=== PATIENT | male | born 1985 | race American Indian/Alaskan Native ===

== ENCOUNTER 2017-08-30 08:48 | Emergency (ER) | payer MEDICARE, MEDICAID ==
[2017-08-30 08:49] VITALS: BMI 28.5
[2017-08-30] MEDS ORDERED: HYDROmorphone 1 mg/ml ISec IVP STA (08:52)
[2017-08-30] MEDS ORDERED: HYDROmorphone 2 mg/ml ISec IVP STA (08:52)
--- NOTE | 2017-08-30 08:58 | ED PDOC ---
Arrival/HPI - General Chief Complaint: Male Genitourinary Time Seen by Provider: 08/30/17 08:49 Historian: Patient - History of Present Illness Narrative History of Present Illness (Text): 08/30/17 08:55 A 31 year old male, whose past medical history includes sickle cell anemia, presents to the emergency department with sudden onset left testicular pain. The patient states that the pain began just a few hours ago. The patient denies fevers, chills, headache, dizziness, chest pain, shortness of breath, dyspnea on exertion, cough, abdominal pain, nausea, vomiting, diarrhea, back pain, neck pain, urinary/bowel changes, or any other complaint. Time/Duration: Other (Few Hours Ago) Symptom Onset: Sudden Symptom Course: Unchanged Activities at Onset: Rest Context: Home Past Medical History - Provider Review Nursing Documentation Reviewed: Yes - Tetanus Immunization Tetanus Immunization: Unknown - Psychiatric Hx Depression: No Hx Emotional Abuse: No Hx Physical Abuse: No Hx Substance Use: Yes (CANNABIS) - Past Surgical History Past Surgical History: No Previous - Suicidal Assessment Feels Threatened In Home Enviroment: No Family/Social History - Physician Review Nursing Documentation Reviewed: Yes Family/Social History: No Known Family HX Smoking Status: Never Smoked Hx Alcohol Use: Yes Frequency of alcohol use: Socially Hx Substance Use: Yes (CANNABIS) Allergies/Home Meds Allergies/Adverse Reactions: Allergies shellfish derived Allergy (Verified 08/30/17 08:52) ANAPHYLAXIS Review of Systems - Physician Review All systems were reviewed & negative as marked: Yes - Review of Systems Constitutional: absent: Fevers, Night Sweats Respiratory: absent: SOB Cardiovascular: absent: Chest Pain, FOWLER Gastrointestinal: absent: Abdominal Pain, Stool Changes, Diarrhea, Nausea, Vomiting Genitourinary Male: Other (Left Testicular Pain.). absent: Urinary Output Changes Musculoskeletal: absent: Back Pain, Neck Pain Neurological: absent: Headache, Dizziness Physical Exam Vital Signs Reviewed: Yes Vital Signs Temp Pulse Resp BP Pulse Ox 08/30/17 11:00 84 18 142/78 98 08/30/17 09:15 98.7 F 87 18 158/111 H 100 Temperature: Afebrile Blood Pressure: Hypertensive Pulse: Regular Respiratory Rate: Normal Appearance: Positive for: Well-Appearing, Non-Toxic Pain Distress: Mild Mental Status: Positive for: Alert and Oriented X 3 - Systems Exam Head: Present: Atraumatic, Normocephalic Pupils: Present: PERRL Extroacular Muscles: Present: EOMI Conjunctiva: Present: Normal Mouth: Present: Moist Mucous Membranes Neck: Present: Normal Range of Motion Respiratory/Chest: Present: Clear to Auscultation, Good Air Exchange. No: Respiratory Distress, Accessory Muscle Use Cardiovascular: Present: Regular Rate and Rhythm, Normal S1, S2. No: Murmurs Abdomen: Present: Normal Bowel Sounds. No: Tenderness, Distention, Peritoneal Signs Genitourinary Male: Present: Testicle Tenderness (Left testicular tenderness. ) Back: Present: Normal Inspection Upper Extremity: Present: Normal Inspection. No: Cyanosis, Edema Lower Extremity: Present: Normal Inspection. No: Edema Neurological: Present: GCS=15, CN II-XII Intact, Speech Normal Skin: Present: Warm, Dry, Normal Color. No: Rashes Psychiatric: Present: Alert, Oriented x 3, Normal Insight, Normal Concentration Medical Decision Making ED Course and Treatment: 08/30/17 08:58 Impression: A 31 year old male presents to the emergency department with a few hour duration left testicular pain. Plan: -- Testes Ultrasound -- Labs -- Dilaudid -- Reassess and disposition Prior Visits: Notes and results from previous visits were reviewed. Patient was last seen in the emergency department on 02/24/2013. The patient was seen in the emergency department with right lateral hand laceration. The patient was discharged home. Progress Notes: TESTES US Dictator : Gracy Wang MD Report Date : 08/30/2017 10:46:27 IMPRESSION: Small left hydrocele. Please note, color flow demonstrated within bilateral testes. Doppler images were suboptimal, likely due to technical difficulties. 08/30/17 11:44: Dr. Sarmiento at bedside. States torsion less likey Recommends Motrin and antibiotics. pt offered addidionatl observation and cT scan of abdomena s no reports abdominal pain- pt refuses, wishes to leave immediately. 08/30/17 12:00: Leaving Against Medical Advice (AMA): The patient is choosing to leave against medical advice. I have personally explained to the patient that choosing to do so may result in permanent bodily harm or . I have discussed at great length that without further evaluation and monitoring there may be unforeseen circumstances and/or deterioration causing permanent bodily harm or as a result of their choice. The patient is alert, oriented, and shows the mental capacity to make clear decisions regarding the patients health care at this time. The patient continues to wish to leave against medical advice. In light of the patients decision to leave against medical advice, follow-up has been arranged and the patient is aware of the importance to following up as instructed. The patient has been advised that they should return to the emergency room immediately if they change their mind at any time, or if their condition begins to change or worsen in any way. - Lab Interpretations Lab Results: 08/30/17 09:00 08/30/17 09:00 Lab Results 08/30/17 10:20: Urine Color Yellow, Urine Appearance Sl cloudy, Urine pH 6.0, Ur Specific [place] 1.025, Urine Protein 100 H, Urine Glucose (UA) Negative, Urine Ketones Negative, Urine Blood Small H, Urine Nitrate Negative, Urine Bilirubin Negative, Urine Urobilinogen 0.2, Ur Leukocyte Esterase Negative, Urine RBC 0 - 2, Urine WBC 0 - 2, Ur Epithelial Cells None, Urine Bacteria Mod, Hyaline Casts 0 - 2 08/30/17 09:00: Sodium 143, Potassium 4.1, Chloride 108 H, Carbon Dioxide 24, Anion Gap 14, BUN 12, Creatinine 1.0, Est GFR ( Amer) > 60, Est GFR (Non- Af Amer) > 60, Random Glucose 115 H, Calcium 10.0, Total Bilirubin 0.8, AST 30, ALT 47, Alkaline Phosphatase 60, Total Protein 7.6, Albumin 4.6, Globulin 3.0, Albumin/Globulin Ratio 1.6 08/30/17 09:00: PT 10.0, INR 0.91 L, APTT 31.5 08/30/17 09:00: WBC 10.9, RBC 4.86, Hgb 14.9, Hct 43.1, MCV 88.7, MCH 30.7, MCHC 34.6, RDW 13.4, Plt Count 258, MPV 10.0, Gran % 55.9, Lymph % (Auto) 31.4, [place] % (Auto) 10.1 H, Eos % (Auto) 2.3, Baso % (Auto) 0.3, Gran # 6.12, Lymph # 3.4, Oliver # 1.1 H, Eos # 0.3, Baso # 0.03 I have reviewed the lab results: Yes - RAD Interpretation Radiology Orders: 08/30/17 08:52 TESTES DUPLEX COMPLETE [US] Stat - Medication Orders Current Medication Orders: Discontinued Medications Hydromorphone HCl (Dilaudid) 1 mg IVP STAT STA Stop: 08/30/17 08:53 Hydromorphone HCl (Dilaudid) 2 mg IVP STAT STA Stop: 08/30/17 08:53 Last Admin: 08/30/17 09:04 Dose: - Scribe Statement The provider has reviewed the documentation as recorded by the Scribe Aleena Farmer Provider Scribe Attestation: All medical record entries made by the Scribe were at my direction and personally dictated by me. I have reviewed the chart and agree that the record accurately reflects my personal performance of the history, physical exam, medical decision making, and the department course for this patient. I have also personally directed, reviewed, and agree with the discharge instructions and disposition. Disposition/Present on Arrival - Present on Arrival Any Indicators Present on Arrival: No History of DVT/PE: No History of Uncontrolled Diabetes: No Urinary Catheter: No History of Decub. Ulcer: No History Surgical Site Infection Following: None - Disposition Have Diagnosis and Disposition been Completed?: Yes Diagnosis: Testicular pain, Hydrocele Disposition: AGAINST MEDICAL ADVICE Disposition Time: 11:00 Condition: STABLE Discharge Instructions (ExitCare): Testicle Pain (ED) Additional Instructions: please follow up with specialist. return to er with worsening symptoms or concerns. Prescriptions: Ciprofloxacin [Cipro] 500 mg PO BID #14 tab Ibuprofen [Motrin Tab] 600 mg PO Q8 PRN #20 tab PRN Reason: Pain, Mild (1-3) Referrals: [facility] Bryant Mcclendon, [Primary Care Provider] - Follow up with primary Abisai Sarmiento MD [Staff Provider] - Follow up with primary Forms: [employer] ([place])
[2017-08-30] MEDS ORDERED: HYDROmorphone 2 mg/ml ISec ONE (09:01)
[2017-08-30 09:16] VITALS: RESP 18; TEMP 98.7
[2017-08-30 09:23] LABS: BASO # 0.03 K/mm3 (0.0-2.0); BASO % 0.3 % (0.0-3.0); EOS # 0.3 (0.0-0.7); EOS % 2.3 % (1.5-5.0); GRAN # 6.12 (1.4-6.5); GRAN % 55.9 % (50.0-68.0); HEMATOCRIT 43.1 % (42.0-52.0); LYMPH # 3.4 (1.2-3.4); LYMPH % 31.4 % (22.0-35.0); MEAN CELL VOLUME 88.7 fl (80.0-105.0); MEAN CORPUSCULAR HEMOGLOBIN 30.7 pg (25.0-35.0); MEAN CORPUSCULAR HGB CONC 34.6 g/dl (31.0-37.0); MONO # 1.1 (0.1-0.6); MONO % 10.1 % (1.0-6.0); RED CELL DISTRIBUTION WIDTH 13.4 % (11.5-14.5); WHITE BLOOD COUNT 10.9 10^3/ul (4.5-11.0)
[2017-08-30 09:28] LABS: ALB/GLOB RATIO 1.6 (1.1-1.8); ALKALINE PHOSPHATASE 60 U/L (38-126); ALT/SGPT 47 U/L (7-56); AST/SGOT 30 U/L (17-59); BILIRUBIN,TOTAL 0.8 mg/dL (0.2-1.3); BLOOD UREA NITROGEN 12 mg/dL (7-21); CARBON DIOXIDE 24 mmol/L (21-33); CHLORIDE 108 mmol/L (98-107); GFR AFRICAN-AMERICAN > 60; GLUCOSE,RANDOM 115 mg/dL (70-110); POTASSIUM 4.1 mmol/L (3.6-5.0); SODIUM 143 mmol/L (132-148); TOTAL PROTEIN 7.6 g/dL (5.8-8.3)
[2017-08-30 09:32] LABS: INR 0.91 (0.93-1.08); PARTIAL THROMBOPLASTIN TIME 31.5 Seconds (25.1-36.5)
[2017-08-30 10:59] LABS: URINE BILIRUBIN NEGATIVE (NEGATIVE); URINE BLOOD SMALL (NEGATIVE); URINE GLUCOSE (UA) NEGATIVE (NEGATIVE); URINE KETONE NEGATIVE (NEGATIVE); URINE LEUKOCYTE ESTERASE NEGATIVE Leu/uL (NEGATIVE); URINE PROTEIN 100 mg/dL (<30 mg/dL); URINE UROBILINOGEN 0.2 E.U./dL (<1 E.U./dL)
[2017-08-30 11:00] LABS: URINE APPEARANCE SL CLOUDY (CLEAR); URINE COLOR YELLOW (YELLOW)
[2017-08-30 11:08] LABS: URINE BACTERIA MOD (NEG); URINE RBC 0 - 2 /hpf (0-2); URINE WBC 0 - 2 /hpf (0-6)
--- NOTE | 2017-08-30 11:13 | US ---
HISTORY: left testicular pain TECHNIQUE: Realtime sonography through the scrotum with color and doppler flow. COMPARISON: None Available. FINDINGS: RIGHT TESTICLE: Measures 4.1 x 2.7 x 3.0 cm. Homogeneous echotexture. Color flow demonstrated. RIGHT EPIDIDYMIS: Epididymal head measures approximately 0.9 x 1.0 x 1.0 cm. LEFT TESTICLE: Measures 4.3 x 2.0 x 2.9 cm. Homogeneous echotexture. Color flow is demonstrated. LEFT EPIDIDYMIS: Epididymal head measures approximately 1.0 x 1.2 x 0.9 cm. HYDROCELE: Small left hydrocele. VARICOCELE: None. OTHER FINDINGS: Please note, color flow demonstrated within bilateral testes. Doppler images were suboptimal, likely due to technical difficulties. IMPRESSION: Small left hydrocele. Please note, color flow demonstrated within bilateral testes. Doppler images were suboptimal, likely due to technical difficulties.
[2017-08-30 12:05] VITALS: BP 142/78; PULSE 84; O2SAT 98
== END 2017-08-30 12:07 | disposition left against medical advice (07) ==
LOC: ED 08:48
DX: N43.3 Hydrocele, unspecified (principal); N50.812 Left testicular pain
CPT/HCPCS: 80053; 81001; 85025; 85610; 85730; 87491; 87591; 93975; 99284; J1170